=== PATIENT | female | born 1985 | race African-American/Black ===

== ENCOUNTER 2016-11-27 13:53 | Emergency (ER) | payer BC ==
--- NOTE | ~2016-11-27 | EKG ---
PATIENT: HIGINIO HAWKINS UNIT #: [id number] Ventricular Rate: 75 BPM Atrial Rate: 75 BPM P-R Interval: 156 ms QRS Duration: 74 ms Q-T Interval: 376 ms QTC Calculation(Bezet): 419 ms P [place]: 22 degrees Calculated R [place]: 21 degrees Calculated T [place]: 2 degrees Diagnosis Line: Normal sinus rhythm with sinus arrhythmia Diagnosis Line: Otherwise normal ECG Diagnosis Line: When compared with ECG of 13-OCT-2015 09:22, Diagnosis Line: No significant change was found Diagnosis Line: Confirmed by PETAR SMITH MD ([id number]) on Diagnosis Line: 01/13/2017 4:04:29 PM INTERPRETING MD: TORIBIO
--- NOTE | ~2016-11-27 | CR63 ---
[facility]. [facility] A Service of [facility] & [facility] RADIOLOGY TEXT RESULTS PATIENT: HIGINIO HAWKINS LOCATION: SED : [birth year] UNIT #: [id number] AGE: [address]: Zachary Dillard MD SEX: F ORDER DR: [id number] [place] [id number] E MR#: [id number] Acc #: [id number] NAME: HIGINIO HAWKINS : 1985 SEX: F STUDY DATE/TIME: 11/27/2016 13:39 UNIT: SED ROOM: STUDY DESCRIPTION: CR Chest 2 View Attending Physician: Zachary Dillard M.D. Ordering Physician: Zachary Dillard M.D. Primary Care Physician: Josefa Rai M.D. MEDICAL IMAGING REPORT This report is preliminary unless electronic signature is present. EXAM Chest x-ray, 11/27/2016. HISTORY Midsternal chest pain radiating to the left side and back. This started at 3 o'clock today. FINDINGS 2 views of the chest, compared with 10/13/2015. Cardiomegaly is stable. Lungs are clear. Vascularity is normal. No pneumothorax. IMPRESSION Stable cardiomegaly. No active disease. Dictated by... Yadiel Whyte Jr., M.D. THIS IS AN ELECTRONICALLY VERIFIED REPORT Yadiel Whyte Jr., M.D. at 11/27/2016 3:52 PM KARINA/shanon TD: 11/27/2016 14:40 JOB #: [id number] MEDICAL IMAGING REPORT
[~2016-11-27 13:53] MED LIST: AMOXICILLIN500 M1 PO; BACTRIM DS TABL1 TA1 PO; LOESTRIN FE1 EA PO; MACROBID100 MG DOB; MOTRIN600 M2 DOB; NO MEDICATIONS; URINARY PAIN97.5 MG PO; VALTREX500 MG PO; ZOFRAN ODT4 MG PO
[2016-11-27] MEDS ORDERED: NAPROSYN500 MG PO (15:21)
== END 2016-11-27 15:25 | disposition home or self-care (01) ==
LOC: SED 13:53
DX: R09.1 Pleurisy (principal); F41.9 Anxiety disorder, unspecified; Z91.040 Latex allergy status
CPT/HCPCS: 71020; 93005; 99284

== ENCOUNTER 2016-12-14 19:56 | Emergency (ER) | payer BC ==
--- NOTE | ~2016-12-14 | CT98 ---
[facility]. [facility] A Service [facility] RADIOLOGY TEXT RESULTS PATIENT: HIGINIO HAWKINS LOCATION: SED : [birth year] UNIT #: [id number] AGE: [address]: Sung Carreno SEX: F ORDER DR: [id number] [place] [id number] E MR#: [id number] Acc #: [id number] NAME: HIGINIO HAWKINS. : 1985 SEX: F STUDY DATE/TIME: 12/14/2016 20:22 UNIT: SED ROOM: STUDY DESCRIPTION: CT Lumbar Spine Wo Cont Attending Physician: Sung Carreno P.A.-C. Ordering Physician: Sung Carreno P.A.-C. Primary Care Physician: Josefa Rai M.D. MEDICAL IMAGING REPORT This report is preliminary unless electronic signature is present. EXAM CT lumbar spine without contrast. DATE OF EXAM 12/14/2016 HISTORY Back pain for 1 week. No injury. Left side back and buttock pain. TECHNIQUE CT lumbar spine was performed without contrast. NOTE: This CT exam was performed with one or more of the following radiation dose reduction techniques: automatic exposure control, adjustment of mA and/or kV according to patient size, and iterative reconstruction. FINDINGS Lumbar alignment is satisfactory. No disc space narrowing or subluxation. No fracture or abnormal sclerosis. No bony central canal narrowing or bony outlet foraminal narrowing. At L1-2 and L2-3, there is no evidence of disc bulge or protrusion. At L3-4, there is probably minimal diffuse disc bulging and there is mild bilateral facet hypertrophy, but no significant central canal narrowing. At L4-5, there is moderate diffuse disc bulging and moderate ligamentous hypertrophy and mild bilateral facet hypertrophy, resulting in moderate central canal narrowing, and mild bilateral outlet foraminal narrowing. At L5-S1, there is [id number] diffuse disc bulging, but no focal disc protrusion is identified. Mild bilateral facet hypertrophy. Mild bilateral outlet foraminal narrowing. [facility] A Service [facility] RADIOLOGY TEXT RESULTS PATIENT: HIGINIO HAWKINS LOCATION: [facility] : [birth year] UNIT #: [id number] AGE: [address]: uSng Carreno PAC SEX: F ORDER DR: IMPRESSION 1. No fracture is identified. 2. Satisfactory lumbar alignment. 3. Evaluation of the central canal is limited without contrast but there is moderate diffuse disc bulging at L4-5, and [id number] diffuse disc bulging at L5-S1 resulting in moderate central canal narrowing at L4-L5 and mild bilateral outlet foraminal narrowing at L4-5 and L5-S1. Dictated by... Anibal Martin M.D. THIS IS AN ELECTRONICALLY VERIFIED REPORT Anibal Martin M.D. at 12/15/2016 11:38 PM ISADORA/andrés TD: 12/15/2016 16:30 JOB #: [id number] MEDICAL IMAGING REPORT
[~2016-12-14 19:56] MED LIST changes: +NAPROSYN500 MG PO
[2016-12-14 20:01] LABS: URINE SOURCE CLEAN CATCH
[2016-12-14 20:04] LABS: URINE APPEARANCE CLEAR; URINE BILIRUBIN NEG (NEG); URINE BLOOD NEG (NEG); URINE COLOR YELLOW; URINE GLUCOSE NEG (NORM); URINE KETONE TRACE (NEG); URINE LEUKOCYTE ESTERASE NEG (NEG); URINE NITRATE NEG (NEG); URINE PROTEIN NEG (NEG); URINE SPECIFIC GRAVITY 1.025 (1.003-1.035)
[2016-12-14 20:05] LABS: MICRO INDICATED? NO
== END 2016-12-14 21:33 | disposition home or self-care (01) ==
LOC: SED 19:56
PROVIDERS: Physician Assistant
DX: M54.42 Lumbago with sciatica, left side (principal); M54.16 Radiculopathy, lumbar region; Z91.041 Radiographic dye allergy status
CPT/HCPCS: 72131; 81003; 84703; 99284

== ENCOUNTER → 2016-12-25 | Outpatient (CLI) | payer BC ==
--- NOTE | ~2016-12-25 | MR113 ---
[facility] A Service of [facility] RADIOLOGY TEXT RESULTS PATIENT: HIGINIO HAWKINS LOCATION: [facility] : [birth year] UNIT #: [id number] AGE: [address]: Josefa Rai MD SEX: F ORDER DR: [id number] [place] [id number] O MR#: [id number] Acc #: [id number] NAME: HIGINIO HAWKINS : 1985 SEX: F STUDY DATE/TIME: 12/25/2016 17:49 UNIT: [facility] ROOM: STUDY DESCRIPTION: MR Lumbar Wo Contrast Attending Physician: Josefa Rai M.D. Ordering Physician: Josefa Rai M.D. Primary Care Physician: Josefa Rai M.D. MRI CENTER REPORT This report is preliminary unless electronic signature is present. EXAM Lumbar spine MR no contrast 12/25/2016 PROCEDURE Routine unenhanced lumbar spine MRI COMPARISON Lumbar spine CT 12/14/2016 CLINICAL HISTORY Worsening low back pain, especially left-sided radiating into left leg for about 2 weeks FINDINGS There is a slight 4-5 retrolisthesis. Alignment is otherwise normal. Bone marrow signal is within normal limits and the distal cord and conus are normal in position and appearance. The paraspinous soft tissues are normal. At 1-2, 2-3 and 3-4 at each level the disc, canal and foramina are normal. At 4-5, again there is slight retrolisthesis and disc desiccation and a minimal disc bulge. There is no canal stenosis, and there is borderline left and borderline if any right foraminal narrowing. At L5-S1 there is no canal stenosis, though there is a small central disc protrusion. There may be slight left lateral recess compromise, and there is borderline if any left and no right foraminal narrowing. IMPRESSION Modest degenerative changes. At 4-5 there is borderline left foraminal narrowing and at 5-1 a central disc protrusion causes perhaps mild left STS. [facility] A Service [facility] RADIOLOGY TEXT RESULTS PATIENT: HIGINIO HAWKINS LOCATION: [facility] : [birth year] UNIT #: [id number] AGE: [address]: Josefa Rai MD SEX: F ORDER DR: lateral recess compromise, and there is borderline to mild left 5-1 foraminal narrowing. Otherwise negative study. Dictated by... Wood Longoria M.D. THIS IS AN ELECTRONICALLY VERIFIED REPORT Wood Longoria M.D. at 12/28/2016 5:01 PM IZABELLA/kingston TD: 12/26/2016 09:29 JOB #: [id number] MRI CENTER REPORT Page 1 of 1
== END | disposition home or self-care (01) ==
LOC: SMRI 17:00
DX: M54.30 Sciatica, unspecified side (principal); M51.17 Intervertebral disc disorders with radiculopathy, lumbosacral region; M47.816 Spondylosis without myelopathy or radiculopathy, lumbar region
CPT/HCPCS: 72148